=== PATIENT | female | born 1965 | race Caucasian/White ===

== ENCOUNTER 2023-10-06 07:56 | Emergency (ER) | payer BC, OTHER ==
[~2023-10-06] VITALS: Ht 170.2 cm; Wt 102.1 kg
[2023-10-06 08:23] VITALS: BP 142/70; PULSE 84; RESP 18; TEMP 97.7; O2SAT 98
[2023-10-06] MEDS ORDERED: CIPRSUS OT (09:11)
[2023-10-06] MEDS ORDERED: AUG875T PO (09:11)
== END 2023-10-06 09:17 | disposition home or self-care (01) ==
LOC: ER 07:56
DX: H61.22 Impacted cerumen, left ear (principal); H65.93 Unspecified nonsuppurative otitis media, bilateral; Z91.018 Allergy to other foods
CPT/HCPCS: 69209

== ENCOUNTER 2024-02-24 14:57 | Emergency (ER) | payer OTHER ==
[~2024-02-24] VITALS: Ht 170.2 cm; Wt 101.8 kg
[~2024-02-24 14:57] MED LIST: AUG875T PO; CIPRSUS OT
[2024-02-24] MEDS: HYDROcodone-ACET 5/325MG TAB PO ONE (15:51)
[2024-02-24 15:52] VITALS: BP 142/87; PULSE 88; RESP 17; TEMP 98.6; O2SAT 98
== END 2024-02-24 16:36 | disposition home or self-care (01) ==
LOC: ER 14:57
DX: S82.141A Displaced bicondylar fracture of right tibia, initial encounter for closed fracture (principal); S76.011A Strain of muscle, fascia and tendon of right hip, initial encounter; S93.401A Sprain of unspecified ligament of right ankle, initial encounter; Z88.8 Allergy status to other drugs, medicaments and biological substances; X50.1XXA Overexertion from prolonged static or awkward postures, initial encounter; Y93.89 Activity, other specified; Y92.89 Other specified places as the place of occurrence of the external cause; Y99.8 Other external cause status
CPT/HCPCS: 29505; 73502; 73562; 73610